=== PATIENT | female | born 2000 | race Caucasian/White ===

== ENCOUNTER 2020-04-07 21:24 | Emergency (ER) | payer BC, OTHER | END 2020-04-07 22:16 | disposition home or self-care (01) | LOC: ER1 21:24 | DX: M26.601 Right temporomandibular joint disorder, unspecified (principal); H92.01 Otalgia, right ear; F17.290 Nicotine dependence, other tobacco product, uncomplicated; Z88.0 Allergy status to penicillin | CPT/HCPCS: 99283 ==

== ENCOUNTER 2020-11-28 20:46 | Emergency (ER) | payer BC, OTHER ==
[2020-11-29] MEDS ORDERED: OMNICEF 300 MG300 MG PO (21:20)
[2020-11-30] MEDS ORDERED: FLAGYL500 MG PO (01:27)
== END 2020-11-28 21:58 | disposition left against medical advice (07) ==
LOC: ER1 20:46
DX: Z53.21 Procedure and treatment not carried out due to patient leaving prior to being seen by health care provider (principal)

== ENCOUNTER 2020-11-29 17:22 | Emergency (ER) | payer BC, OTHER ==
[2020-11-29 21:20] LABS: BUN/CREATININE RATIO 9 (0-10)
[2020-11-29] MEDS ORDERED: OMNICEF 300 MG300 MG PO (21:20)
[2020-11-29 21:25] LABS: HEMOGLOBIN 12.4 gm/dl (12.3-15.3); RED BLOOD COUNT 3.98 M/UL (4.00-5.10); WHITE BLOOD COUNT 13.8 K/UL (4.5-11.0)
[2020-11-30] MEDS ORDERED: FLAGYL500 MG PO (01:27)
== END 2020-11-29 22:09 | disposition home or self-care (01) ==
LOC: ER1 17:22
PROVIDERS: Physician Assistant
DX: O23.42 Unspecified infection of urinary tract in pregnancy, second trimester (principal); Z3A.18 18 weeks gestation of pregnancy; Z88.0 Allergy status to penicillin
CPT/HCPCS: 80053; 81001; 85025; 87210; 96374; 99283; J0696

== ENCOUNTER 2021-03-13 05:38 | Inpatient (IN) | payer BC, OTHER ==
[~2021-03-13 05:38] MED LIST: FLAGYL500 MG PO; OMNICEF 300 MG300 MG PO
[2021-03-13 07:57] LABS: RED BLOOD COUNT 3.92 M/UL (4.00-5.10); WHITE BLOOD COUNT 15.2 K/UL (4.5-11.0)
[2021-03-13] MEDS ORDERED: IBUPROFEN600 MG PO (09:23)
[2021-03-13] MEDS ORDERED: FERROUS SULFAT325 MG PO (09:23)
[2021-03-13] MEDS ORDERED: PERCOCET 5-3251 EACH PO (09:23)
[2021-03-13] MEDS ORDERED: COLACE 100MG C100 MG PO (09:23)
[2021-03-14 08:34] LABS: HEMOGLOBIN 11.1 gm/dl (12.3-15.3)
== END 2021-03-14 11:46 | disposition home or self-care (01) | DRG 786 ==
LOC: GENOP 05:38 → OB 07:20
PROVIDERS: ADMIT Obstetrics & Gynecology
PROC: 4A1HXCZ Monitoring of Products of Conception, Cardiac Rate, External Approach (ICD-10-PCS; 2021-03-13)
PROC: 3E0234Z Introduction of Serum, Toxoid and Vaccine into Muscle, Percutaneous Approach (ICD-10-PCS; 2021-03-13)
PROC: 3E02340 Introduction of Influenza Vaccine into Muscle, Percutaneous Approach (ICD-10-PCS; 2021-03-13)
PROC: 10D00Z1 Extraction of Products of Conception, Low, Open Approach (ICD-10-PCS; principal; 2021-03-13 08:27)
DX: O30.043 Twin pregnancy, dichorionic/diamniotic, third trimester (principal); O60.14X0 Preterm labor third trimester with preterm delivery third trimester, not applicable or unspecified; Z3A.31 31 weeks gestation of pregnancy; Z37.0 Single live birth; O32.1XX1 Maternal care for breech presentation, fetus 1; Z20.822 Contact with and (suspected) exposure to COVID-19; O32.1XX2 Maternal care for breech presentation, fetus 2; Z37.2 Twins, both liveborn; Z98.890 Other specified postprocedural states; Z88.0 Allergy status to penicillin; O62.2 Other uterine inertia; Z23 Encounter for immunization
CPT/HCPCS: 36415; 81001; 82800; 83518; 85014; 85018; 85025; 90471; 90686; 90715; C9113; G0008; J1170; J1200; J1580; J2210; J2370; J2405; J2590; J3475; J7120; U0002